=== PATIENT | female | born 1955 | race Caucasian/White ===

== ENCOUNTER → 2023-07-01 13:16 | Outpatient (BNVA) | payer MEDICARE, OTHER, SELFPAY | DX: N39.0 Urinary tract infection, site not specified (principal); R31.9 Hematuria, unspecified | CPT/HCPCS: 81000; 87086 ==

== ENCOUNTER 2023-07-05 09:50 | Outpatient (CLI) | payer MEDICARE, OTHER, SELFPAY ==
--- NOTE | 2023-07-05 10:00 | CTR_ITS ---
PROCEDURE INFORMATION: Exam: CT Abdomen And Pelvis Without Contrast Exam date and time: 07/05/2023 9:59 AM Age: 67 years old Clinical indication: Pain; Other: Left flank; Prior surgery; Surgery date: 6+ months; Surgery type: Hyst, gb; Additional info: Hematuria, left flank pain, renal stone protocol TECHNIQUE: Imaging protocol: Computed tomography of the abdomen and pelvis without contrast. Radiation optimization: All CT scans at this facility use at least one of these dose optimization techniques: automated exposure control; mA and/or kV adjustment per patient size (includes targeted exams where dose is matched to clinical indication); or iterative reconstruction. REPORTING DATA: Count of CT and Cardiac NM exams in prior 12 months: This patient has received 0 known CTs and 0 known cardiac nuclear medicine studies in the 12 months prior to the current study. COMPARISON: No relevant prior studies available. RADIATION DOSE METRICS: Total DLP (mGy-cm): 261.91 FINDINGS: Lungs: 4 mm solid nodule in the superior lingula (axial series 3, image 3). 5 mm solid nodule in the inferior lingula (axial series 3, image 11). 4 mm solid nodule in the medial basal segment the left lower lobe (axial series 3, image 39). Partially calcified 4 mm solid nodule in the lateral basal segment of the right lower lobe (axial series 3, image 12), possibly a partially calcified granuloma. Liver: The liver is normal in size and contour. Gallbladder and bile ducts: The gallbladder is surgically absent. Pancreas: The pancreas appears normal. Spleen: The spleen appears normal. Adrenal glands: The adrenals appear normal. Kidneys and ureters: Significant enlargement of the left kidney with partial obliteration of the renal sinus. Minimal left-sided perinephric fat stranding. Poor visualization of the renal collecting system. No ureteral stones identified. Stomach and bowel: The stomach is unremarkable. The small bowel loops are not abnormally dilated. The large bowel loops are not abnormally dilated. Appendix: The appendix appears normal. Intraperitoneal space: Trace fluid in the left paracolic gutter, possibly tracking from the left perinephric space. Vasculature: The aorta is nonaneurysmal. The IVC appears normal. Lymph nodes: Prominent left-sided periaortic lymphadenopathy at the level of the left kidney. Urinary bladder: The bladder is distended and demonstrates no focal contour abnormality. Reproductive: The uterus is surgically absent. Bones/joints: Grade 1 anterolisthesis of L5 on S1 by approximately 8 mm. New line degenerative disc disease at L5-S1 with vacuum disc phenomenon. Soft tissues: Unremarkable. CT/CT kidney stone [id number] IMPRESSION: 1. Significant enlargement of the left kidney with partial obliteration of the renal sinus. Minimal left-sided perinephric fat stranding. Poor visualization of the renal collecting system. No ureteral stones identified. Findings could be related to significant renal/perinephric hemorrhage and/or related to malignancy. Recommend additional CT abdomen pelvis with contrast including delayed phase imaging. 2. Prominent left-sided periaortic lymphadenopathy at the level of the left kidney. 3. Multiple solid pulmonary nodules noted. COMMENTS: Evaluation of solid organs and vascular structures is limited as no IV contrast was administered.
== END 2023-07-05 09:51 | disposition home or self-care (01) ==
LOC: RAD 09:50
PROVIDERS: PCP Family Medicine; Visit Provider Family Medicine
DX: N28.81 Hypertrophy of kidney (principal); R59.0 Localized enlarged lymph nodes; R91.8 Other nonspecific abnormal finding of lung field; R31.9 Hematuria, unspecified; R10.9 Unspecified abdominal pain
CPT/HCPCS: 74176

== ENCOUNTER 2023-07-12 08:40 | Oncology outpatient (recurring) (ONCR) | payer MEDICARE, OTHER, SELFPAY ==
--- OUTSIDE RECORDS SUMMARY | 2023-07-12 08:44 | XMS_ITS | Continuity of Care Document ---
Author Name Unknown Organization [facility] Address [address] [place] [address]- Encounter [place] [employer] Number [id number] Date(s): 07/05/23 - 07/06/23 [facility] [address] [place] [address]- Encounter Diagnosis Renal cell carcinoma of left kidney(Discharge Diagnosis) - 07/05/23 Metastasis to lung(Discharge Diagnosis) - 07/05/23 Discharge Disposition: .Discharge to Home (Routine) Attending Physician: Gregorio Chinchilla MD Allergies, Adverse Reactions, Alerts Substance Reaction Severity Status morphine vomiting Moderate Active Versed vomiting Moderate Active Latex blisters estrada Moderate Active traMADol throat swelling hives, Severe Active Assessment and Plan Extracted from: Title:ED Physician Note Author:Gregorio Chinchilla MD Date:07/05/23 Impression and Plan Calls-Consults - 07/05/2023 21:37:00 , Stacia SNOW, Tigre Rouse MD, Justin. Plan Condition: Stable. Disposition: Discharged: The patient received an appropriate MSE including H&P exam as well as ancillary studies and procedures determined appropriate in the provider's judgement. The patient is medically and/or psychologically cleared for discharge. . 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, [id number], 54.4, Weight (kg) (Clinical), 07/05/23 16:41:00 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, kg Education: Kidney Cancer Orders: ( Completed ): Xtra Gold Top 07/05/2023 17:54 Magnesium Serum (Magnesium Serum) 07/05/2023 18:21 CBC-d (CBC-d) 07/05/2023 18:07 Lipase (Lipase) 07/05/2023 18:21 CMP (CMP) 07/05/2023 18:21 zCBC Automated Diff 07/05/2023 18:07 Phlebotomy EKG 12-Lead (EKG 12-Lead) 07/05/2023 20:17 Obtain EKG (Obtain EKG) 07/05/2023 19:45 fentaNYL (fentaNYL) 100 mcg 07/05/2023 19:54 ondansetron (Zofran) 4 mg 07/05/2023 19:57 CT Chest Abd Pelvis w Contrast (CT Chest Abd Pelvis w Contrast) 07/05/2023 21:19 iopamidol (ISOVUE 370 IBP INJ 500 ML) 75 mL 07/05/2023 20:29 ED Physician Request Pending Complete (ED Physician Request Pending Complete) 07/05/2023 21:41 ED Physician Request (ED Physician Request) 07/05/2023 21:31 ED Physician Request Pending Complete (ED Physician Request Pending Complete) 07/05/2023 21:34 ED Physician Request (ED Physician Request) 07/05/2023 21:39 Orders: ( Ordered ): Urinalysis w/ microscopy (Urinalysis w/ microscopy) fentaNYL (fentaNYL) 100 mcg Follow Up: Prashant Kim 5 to 7 days Oncology . Counseled: Patient, Regarding diagnosis, Regarding diagnostic results, Regarding treatment plan, Patient indicated understanding of instructions. Medications ALPRAZolam 0.5 mg, By mouth, at bedtime, 30 tab, 0, 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 Start Date: 07/05/23 Status: Ordered atorvastatin 10 mg, By mouth, QPM (every evening), # 30 tab, Refill(s) 0 Start Date: 07/05/23 Status: Ordered cyclobenzaprine 10 mg oral tablet 10 mg = 1 tab, By mouth, TID, Refill(s) 0 Start Date: 07/05/23 Status: Ordered Dorzolamide Hydrochloride Refill(s) 0 Start Date: 07/05/23 Status: Ordered ezetimibe 10 mg oral tablet 10 mg = 1 tab, By mouth, Daily, Refill(s) 0 Start Date: 07/05/23 Status: Ordered finasteride 1 mg oral tablet 1 mg = 1 tab, By mouth, Daily, Refill(s) 0 Start Date: 07/05/23 Status: Ordered latanoprost ophthalmic QPM (every evening), Refill(s) 0 Start Date: 07/05/23 Status: Ordered meloxicam 15 mg oral tablet 15 mg = 1 tab, By mouth, Daily, Refill(s) 0 Start Date: 07/05/23 Status: Ordered Metoprolol Succinate ER 25 mg oral tablet, extended release 25 mg = 1 tab, By mouth, BID, Refill(s) 0 Start Date: 07/05/23 Status: Ordered [place] 5 mg-325 mg oral tablet 1 tab, By mouth, Q4H, PRN for pain, 15 Days, 20 tab, 0, 0, 07/20/23 22:21:00 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, 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, [id number], 54.4, Weight (kg) (Clinical), 07/05/23 16:41:00 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, kg Start Date: 07/05/23 Stop Date: 07/20/23 Status: Ordered omeprazole 40 mg, By mouth, BID, 0, 07/05/23 16:52:00 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, 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 Start Date: 07/05/23 Status: Ordered ramipril 2.5 mg, By mouth, BID, # 60 cap, Refill(s) 0 Start Date: 07/05/23 Status: Ordered timolol By mouth, BID, Refill(s) 0 Start Date: 07/05/23 Status: Ordered traZODone 50 mg oral tablet 50 mg = 1 tab, By mouth, Refill(s) 0 Start Date: 07/05/23 Status: Ordered valACYclovir By mouth, Refill(s) 0 Start Date: 07/05/23 Status: Ordered Problem List Condition Confirmation Course Effective Dates Status Health [facility] Informant Ex-smoker Confirmed Active patient Procedures Procedure Date Related Diagnosis Body Site Status Finger Completed Gallbladder Completed Hysterectomy Completed Results Laboratory List Name Date CBC-d 07/05/23 CMP 07/05/23 Lipase 07/05/23 Magnesium Serum (Mg Serum) 07/05/23 zCBC Automated Diff 07/05/23 Most recent to oldest [Reference Range]: 1 Anion Gap [2-15 mEq/L] 10 mEq/L (07/05/23 5:05 PM) eGFR CKD-EPI [>=61 mL/min/1.73 m2] 74 mL /min/1.73 m2 (07/05/23 5:05 PM) Glucose, Serum/Plasma [70-100 mg/dL] 134 mg/dL *HI* (07/05/23 5:05 PM) WBC [4.8-10.8 Thous/mm3] 8.2 Thous/mm3 (07/05/23 5:05 PM) Hct [37.0-47.0 %] 32.2 % *LOW* (07/05/23 5:05 PM) Hgb [12.0-16.0 g/dL] 10.1 g/dL *LOW* (07/05/23 5:05 PM) RBC [4.20-5.40 Million/mm3] 3.68 Million /mm3 *LOW* (07/05/23 5:05 PM) MCV [80.0-100.0 fl] 87.5 fl (07/05/23:05 PM) MCH [26.0-34.0 pg] 27.4 pg (07/05/23:05 PM) MCHC [31.0-36.5 g/dL] 31.4 g/dL (07/05/23 5:05 PM) RDW [10.4-14.4 %] 13.1 % (07/05/23:05 PM) Platelets [130-440 Thous/mm3] 307 Thous/ mm3 (07/05/23 5:05 PM) MPV [9.4-12.4 fl] 10.1 fl (07/05/23 5:05 PM) AutoNeutrophil [43.0-78.0 %] 73.6 % (07/05/23 5:05 PM) AutoLymphs [20.0-40.0 %] 17.6 % *LOW* (07/05/23 5:05 PM) AutoMono [2.0-10.0 %] 6.8 % (07/05/23 5:05 PM) AutoEo [0.0-7.0 %] 1.0 % (07/05/23 5:05 PM) Sodium [136-145 mEq/L] 142 mEq/L (07/05/23:05 PM) Potassium [3.5-5.1 mEq/L] 4.1 mEq/L (07/05/23 5:05 PM) Chloride [98-107 mEq/L] 108 mEq/L *HI* (07/05/23 5:05 PM) AbsNeut [2.0-8.0 Thous/mm3] 6.1 Thous/mm 3 (07/05/23 5:05 PM) CO2 [21-32 mEq/L] 24 mEq/L (07/05/23 5:05 PM) BUN [7-18 mg/dL] 13 mg/dL (07/05/23 5:05 PM) Creatinine [0.55-1.02 mg/dL] 0.87 mg/dL (07/05/23 5:05 PM) AbsLymph [1.0-4.0 Thous/mm3] 1.4 Thous/m m3 (07/05/23 5:05 PM) AbsMono [0.1-1.0 Thous/mm3] 0.6 Thous/mm 3 (07/05/23 5:05 PM) Bilirubin, Total [0.2-1.0 mg/dL] 0.4 mg/ dL (07/05/23 5:05 PM) AbsEo [0.0-0.5 Thous/mm3] 0.1 Thous/mm3 (07/05/23 5:05 PM) AbsBaso [0.0-0.2 Thous/mm3] 0.0 Thous/mm 3 (07/05/23 5:05 PM) AutoBaso [0.0-2.5 %] 0.5 % (07/05/23 5:05 PM) Calcium [8.3-10.6 mg/dL] 10.1 mg/dL (07/05/23 5:05 PM) Protein Total [6.4-8.5 g/dL] 7.0 g/dL (07/05/23 5:05 PM) Albumin [3.4-5.0 g/dL] 3.6 g/dL (07/05/23 5:05 PM) AST [15-37 U/L] 19 U/L (07/05/23 5:05 PM) Alk Phos [45-117 U/L] 92 U/L (07/05/23 5:05 PM) Magnesium [1.8-2.4 mg/dL] 2.4 mg/dL (07/05/23 5:05 PM) ALT [10-49 U/L] 31 U/L (07/05/23 5:05 PM) Lipase, Serum/Plasma [12-53 U/L] 31 U/L (07/05/23 5:05 PM) Imm. Grans % [0-5 %] <5 % (07/05/23 5:05 PM) Imm. Grans # [0.0-0.5 Thous/mm3] <0.5 Th ous/mm3 (07/05/23 5:05 PM) ANC-AbsNeutCount 6.0 Thous/mm3 *NA* (07/05/23 5:05 PM) Radiology Reports * Exam Date Time Procedure Performing Provider Status 07/05/23 8:[address] Chest Abd Pelvis w Contrast Renée SNOW, Gregorio Lopez; Miriam (Verified) Notes: (CT Chest Abd Pelvis w Contrast) Reason For Exam: Previous CT at outside hospital demonstrates likely left kidney cancer. Radiologist recommended delayed phase imaging with contrast REPORT CT Chest Abd Pelvis w Contrast PROCEDURE INFORMATION: Exam: CT Chest With Contrast; Diagnostic Exam date and time: 07/05/2023 8:28 PM Age: 67 years old Clinical indication: Previous CT at outside hospital demonstrates likely left kidney TECHNIQUE: Imaging protocol: Diagnostic computed tomography of the chest with contrast. Radiation optimization: All CT scans at this facility use at least one of these dose optimization techniques: automated exposure control; mA and/or kV adjustment per patient size (includes targeted exams where dose is matched to clinical indication); or iterative reconstruction. REPORTING DATA: Count of CT and Cardiac NM exams in prior 12 months: This patient has received 0 known CTs and 0 known cardiac nuclear medicine studies in the 12 months prior to the current study. COMPARISON: No relevant prior studies available. FINDINGS: Thyroid: 0.8 cm right thyroid nodule. No ultrasound follow-up is recommended. Lungs: 4 mm right lower lobe nodule (series 2, image 37). 7 mm left lower lobe nodule, image 24. 14 mm left upper lobe nodule, image 22. Mild left base atelectasis. Pleural spaces: No pneumothorax. Trace left pleural effusion. Heart: Unremarkable. No cardiomegaly. No pericardial effusion. Lymph nodes: Unremarkable. No enlarged lymph nodes. Vasculature: Unremarkable. No aortic aneurysm. Bones/joints: Degenerative changes of the spine. No fracture or lytic lesion identified. Soft tissues: Unremarkable. IMPRESSION: 1. Multiple pulmonary nodules, consistent with metastatic disease. COMMENTS: Consistent with the [place] [employer]'s Incidental Findings Committee white paper (J Am Chaz Radiol 2015): In patients aged 35 years and older with an incidental thyroid nodule equal to or greater than 1.[address], MRI or extrathyroidal US, further evaluation with dedicated thyroid US is recommended for patients with normal life expectancy and without comorbidities. For smaller nodules without suspicious features, no further evaluation or follow up is recommended. PROCEDURE INFORMATION: Exam: CT Abdomen And Pelvis With Contrast Exam date and time: 07/05/2023 8:28 PM Age: 67 years old Clinical indication: Previous CT at outside hospital demonstrates likely left kidney TECHNIQUE: Imaging protocol: Computed tomography of the abdomen and pelvis with contrast. Radiation optimization: All CT scans at this facility use at least one of these dose optimization techniques: automated exposure control; mA and/or kV adjustment per patient size (includes targeted exams where dose is matched to clinical indication); or iterative reconstruction. REPORTING DATA: Count of CT and Cardiac NM exams in prior 12 months: This patient has received 0 known CTs and 0 known cardiac nuclear medicine studies in the 12 months prior to the current study. COMPARISON: No relevant prior studies available. FINDINGS: Liver: Normal. No mass. Gallbladder and bile ducts: Cholecystectomy. The bile ducts are normal. Pancreas: Normal. No ductal dilation. Spleen: Normal. No splenomegaly. Adrenal glands: Normal. No mass. Kidneys and ureters: Ill-defined 8.5 cm hypodense mass in the inferior anterior left kidney. Left perinephric stranding. Tumor extension into the left renal vein, to the level of the IVC. No involvement of the IVC identified. 1.9 cm hypodensity in the superior left kidney could represent a cyst or focal caliectasis. Hypodensities in the right kidney are too small to characterize but are most likely cysts. No hydronephrosis. Stomach and bowel: Unremarkable. No obstruction. No mucosal thickening. Appendix: The appendix is visualized and is normal. Intraperitoneal space: Unremarkable. No free air. No significant fluid collection. Vasculature: Mild scattered arterial calcifications. No aneurysm. Lymph nodes: Enlarged 2.4 cm left retroperitoneal lymph node, medial to the left kidney. Urinary bladder: Unremarkable as visualized. Reproductive: The uterus and ovaries are absent. Bones/joints: Degenerative subluxation of L5 on S1. No fracture or lytic lesion identified. Soft tissues: Small fat containing umbilical hernia. IMPRESSION: 1. 8.5 cm mass in the left kidney with extension into the left renal vein. This is consistent with renal cell carcinoma. 2. Enlarged metastatic left retroperitoneal lymph node. COMMENTS: Consistent with the [place] [employer]'s Incidental Findings Committee white paper (J Am Chaz Radiol 2018): Any incidental renal lesion less than 1 cm or classified as too small to characterize, or any incidental cystic renal lesion characterized as simple-appearing, is likely benign. No follow-up imaging is recommended for these lesions per consensus recommendations based on imaging criteria. Electronically signed by: Mao Potts MD, [facility], 07/05/2023 21:18 Mao Potts MD Signed 07/05/23 21:18:45 (Electronic Signature) Technologist EN Vital Signs Most recent to oldest [Reference Range]: 1 2 3 Blood Pressure 124/74 (07/05/23 11:45 PM) 132/88 (07/05/23 11:32 PM) 150/87 (07/05/23 11:00 PM) Weight (kg) (Clinical) 54.4 kg (07/05/23 4:41 PM) 54.4 kg (07/05/23 4:38 PM) Social History Social History Type Response Smoking Status Former smoker; Smoke less tobacco use: Never; Has the patient smoked in the last 365 days, even once? No entered on: 07/05/23 Sex Female Hospital Discharge Instructions Patient Education 07/05/2023 22:22:12 Kidney Cancer Kidney Cancer Kidney cancer is an abnormal growth of cells in one or both kidneys. The kidneys filter waste from your blood and produce urine. Kidney cancer may spread to other parts of your body. This type of cancer may also be called renal cell carcinoma. What are the causes? The cause of this condition is not always known. In some cases, abnormal changes to genes (genetic mutations) can cause cells to form cancer. What increases the risk? You may be more likely to develop kidney cancer if you: ??? Are over age 60. The risk increases with age. ??? Have a family history of kidney cancer. ??? Are of -[place], , or [place] descent. ??? Smoke. ??? Are male. ??? Are obese. ??? Have high blood pressure (hypertension). ??? Have advanced kidney disease, especially if you need long-term dialysis. ??? Have certain conditions that are passed from parent to child (inherited), such as von Hippel-Lindau disease, tuberous sclerosis, or hereditary papillary renal carcinoma. ??? Have been exposed to certain chemicals. What are the signs or symptoms? In the early stages, kidney cancer does not cause symptoms. As the cancer grows, symptoms may include: ??? Blood in the urine. ??? Pain in the upper back or abdomen, just below the rib cage. You may feel pain on one or both sides of the body. ??? Fatigue. ??? Unexplained weight loss. ??? Fever. How is this diagnosed? This condition may be diagnosed based on: ??? Your symptoms and medical history. ??? A physical exam. ??? Blood and urine tests. ??? X-rays. ??? Imaging tests, such as CT scans, MRIs, and PET scans. ??? Having dye injected into your blood through an IV, and then having X-rays taken of: ??? Your kidneys and the rest of the organs involved in making and storing urine (intravenous pyelogram). ??? Your blood vessels (angiogram). ??? Removal and testing of a kidney tissue sample (biopsy). Your cancer will be assessed (staged), based on how severe it is and how much it has spread. How is this treated? Treatment depends on the type and stage of the cancer. Treatment may include one or more of the following: ??? Surgery. This may include surgery to remove: ??? Just the tumor (nephron-sparing surgery). ??? The entire kidney (nephrectomy). ??? The kidney, some of the surrounding healthy tissue, nearby lymph nodes, and the adrenal gland in certain cases (radical nephrectomy). ??? Medicines that kill cancer cells (chemotherapy). ??? High-energy rays that kill cancer cells (radiation therapy). ??? Targeted therapy. This targets specific parts of cancer cells and the area around them to blockthe growth and the spread of the cancer. Targeted therapy can help to limit the damage to healthy cells. ??? Medicines that help your body's disease-fighting system (immune system) fight cancer cells (immunotherapy). ??? Freezing cancer cells using gas or liquid that is delivered through a needle (cryoablation). ??? Destroying cancer cells using high-energy radio waves that are delivered through a needle-like probe (radiofrequency ablation). ??? A procedure to block the artery that supplies blood to the tumor, which kills the cancer cells (embolization). Follow these instructions at home: Eating and drinking ??? Some of your treatments might affect your appetite and your ability to chew and swallow. If youare having problems eating, or if you do not have an appetite, meet with a diet and natural resources specialist (dietitian). ??? If you have side effects that affect eating, it may help to: ??? Eat smaller meals and snacks often. ??? Drink high-nutrition and high-calorie shakes or supplements. ??? Eat bland and soft foods that are easy to eat. ??? Not eat foods that are hot, spicy, or hard to swallow. Lifestyle ??? Do not drink alcohol. ??? Do not use any products that contain nicotine or tobacco, such as cigarettes and e-cigarettes. If you need help quitting, ask your health care provider. General instructions ??? Take eyrc-bpy-nxambyi and prescription medicines only as told by your health care provider. This includes vitamins, supplements, and herbal products. ??? Consider joining a support group to help you cope with the stress of having kidney cancer. ??? Work with your health care provider to manage any side effects of treatment. ??? Keep all follow-up visits as told by your health care provider. This is important. Where to find more information ??? [place] [employer]: https://www.cancer.org ??? National Cancer [place] (NCI): https://www.cancer.gov Contact a health care provider if you: ??? Notice that you bruise or bleed easily. ??? Are losing weight without trying. ??? Have new or increased fatigue or weakness. Get help right away if you have: ??? Blood in your urine. ??? A sudden increase in pain. ??? A fever. ??? Shortness of breath. ??? Chest pain. ??? Yellow skin or whites of your eyes (jaundice). Summary ??? Kidney cancer is an abnormal growth of cells (tumor) in one or both kidneys. Tumors may spread to other parts of your body. ??? In the early stages, kidney cancer does not cause symptoms. As the cancer grows, symptoms may include blood in the urine, pain in the upper back or abdomen, unexplained weight loss, fatigue, and fever. ??? Treatment depends on the type and stage of the cancer. It may include surgery to remove the tumor, procedures and medicines to kill the cancer cells, or medicines to help your body fight cancer cells. This information is not intended to replace advice given to you by your health care provider. Make sure you discuss any questions you have with your health care provider. Document Revised: 02/14/2022 Document Reviewed: 02/14/2022 [employer] Patient Education ?? 2022 Ray[facility] Follow Up Care 07/05/2023 16:29:27 With:Prashant Kim Address: [address] [place] [address], [address] [place] [address] [facility] (1) When:5 to 7 days Comments:Oncology CT Chest and Abdomen and Pelvis W contrast IV * Mao Potts MD: PERFORM, VERIFY, VERIFY Event Display: Report Authored Date: Note * Mao Potts MD: PERFORM, VERIFY, VERIFY Event Display: Powerscribe Read Authored Date: PROCEDURE INFORMATION: Exam: CT Chest With Contrast; Diagnostic Exam date and time: 07/05/2023 8:28 PM Age: 67 years old Clinical indication: Previous CT at outside hospital demonstrates likely left kidney TECHNIQUE: Imaging protocol: Diagnostic computed tomography of the chest with contrast. Radiation optimization: All CT scans at this facility use at least one of these dose optimization techniques: automated exposure control; mA and/or kV adjustment per patient size (includes targeted exams where dose is matched to clinical indication); or iterative reconstruction. REPORTING DATA: Count of CT and Cardiac NM exams in prior 12 months: This patient has received 0 known CTs and 0 known cardiac nuclear medicine studies in the 12 months prior to the current study. COMPARISON: No relevant prior studies available. FINDINGS: Thyroid: 0.8 cm right thyroid nodule. No ultrasound follow-up is recommended. Lungs: 4 mm right lower lobe nodule (series 2, image 37). 7 mm left lower lobe nodule, image 24. 14 mm left upper lobe nodule, image 22. Mild left base atelectasis. Pleural spaces: No pneumothorax. Trace left pleural effusion. Heart: Unremarkable. No cardiomegaly. No pericardial effusion. Lymph nodes: Unremarkable. No enlarged lymph nodes. Vasculature: Unremarkable. No aortic aneurysm. Bones/joints: Degenerative changes of the spine. No fracture or lytic lesion identified. Soft tissues: Unremarkable. IMPRESSION: 1. Multiple pulmonary nodules, consistent with metastatic disease. COMMENTS: Consistent with the [employer]'s Incidental Findings Committee white paper (J Am Chaz Radiol 2015): In patients aged 35 years and older with an incidental thyroid nodule equal to or greater than 1.[address], MRI or extrathyroidal US, further evaluation with dedicated thyroid US is recommended for patients with normal life expectancy and without comorbidities. For smaller nodules without suspicious features, no further evaluation or follow up is recommended. PROCEDURE INFORMATION: Exam: CT Abdomen And Pelvis With Contrast Exam date and time: 07/05/2023 8:28 PM Age: 67 years old Clinical indication: Previous CT at outside hospital demonstrates likely left kidney TECHNIQUE: Imaging protocol: Computed tomography of the abdomen and pelvis with contrast. Radiation optimization: All CT scans at this facility use at least one of these dose optimization techniques: automated exposure control; mA and/or kV adjustment per patient size (includes targeted exams where dose is matched to clinical indication); or iterative reconstruction. REPORTING DATA: Count of CT and Cardiac NM exams in prior 12 months: This patient has received 0 known CTs and 0 known cardiac nuclear medicine studies in the 12 months prior to the current study. COMPARISON: No relevant prior studies available. FINDINGS: Liver: Normal. No mass. Gallbladder and bile ducts: Cholecystectomy. The bile ducts are normal. Pancreas: Normal. No ductal dilation. Spleen: Normal. No splenomegaly. Adrenal glands: Normal. No mass. Kidneys and ureters: Ill-defined 8.5 cm hypodense mass in the inferior anterior left kidney. Left perinephric stranding. Tumor extension into the left renal vein, to the level of the IVC. No involvement of the IVC identified. 1.9 cm hypodensity in the superior left kidney could represent a cyst or focal caliectasis. Hypodensities in the right kidney are too small to characterize but are most likely cysts. No hydronephrosis. Stomach and bowel: Unremarkable. No obstruction. No mucosal thickening. Appendix: The appendix is visualized and is normal. Intraperitoneal space: Unremarkable. No free air. No significant fluid collection. Vasculature: Mild scattered arterial calcifications. No aneurysm. Lymph nodes: Enlarged 2.4 cm left retroperitoneal lymph node, medial to the left kidney. Urinary bladder: Unremarkable as visualized. Reproductive: The uterus and ovaries are absent. Bones/joints: Degenerative subluxation of L5 on S1. No fracture or lytic lesion identified. Soft tissues: Small fat containing umbilical hernia. IMPRESSION: 1. 8.5 cm mass in the left kidney with extension into the left renal vein. This is consistent with renal cell carcinoma. 2. Enlarged metastatic left retroperitoneal lymph node. COMMENTS: Consistent with the [employer]'s Incidental Findings Committee white paper (J Am Chaz Radiol 2018): Any incidental renal lesion less than 1 cm or classified as too small to characterize, or any incidental cystic renal lesion characterized as simple-appearing, is likely benign. No follow-up imaging is recommended for these lesions per consensus recommendations based on imaging criteria. Electronically signed by: Mao Potts MD, [facility], 07/05/2023 21:18 Delroy SNOW, Mao O Signed 07/05/23 21:18:45 (Electronic Signature) Technologist EN Cardiology * Augie SNOW, Vicente D: SIGN, VERIFY Event Display: EKG 12-Lead Authored Date: Patient Care team information Care Team Personnel Name: Jeanna Petty Position: ED-Clinical LP Member Role: Emergency Room Nurse Name: Gregorio Chinchilla MD Position: Physician-Emergency LP Member Role: Attending Physician Address: Address: [facility] [place] [address]- Care Team Related Persons Name: ZAY SCHUSTER
[2023-07-12 10:21] LABS: Basophils # 0.1 10^3/uL (0.0-0.1); Basophils % 0.7 %; Eosinophils # 0.1 10^3/uL (0.0-0.8); Eosinophils % 1.2 %; Hematocrit 32.5 % (36-47); Lymphocytes % 10.6 %; Mean Corpuscular HGB Conc 32.6 g/dL (30-55); Mean Corpuscular Hemoglobin 27.2 pg (27-33); Mean Corpuscular Volume 83.5 fl (85-98); Mean Platelet Volume 9.4 fL (7.4-10.4); Monocytes # 0.8 10^3/uL (0.2-0.9); Neutrophils # 7.46 10^3/uL (1.8-7.7); Neutrophils % 78.8 %; Nucleated Red Blood Cells % 0 %; Platelet Count 318 10^3/cmm (157-399); Red Blood Count 3.89 10^6/uL (3.85-5.65); Red Cell Distribution Width 13.2 % (12.1-15.1); White Blood Count 9.47 10^3/uL (3.29-11.43)
[2023-07-12 10:46] LABS: Alanine Aminotransferase 22 U/L (0-33); Albumin Level 3.6 g/dL (3.5-5.2); Alkaline Phosphatase 95 U/L (35-105); Anion Gap 19.7 (5-19); Aspartate Amino Transferase 19 U/L (0-32); Blood Urea Nitrogen 16 mg/dL (8-23); Calcium 9.2 mg/dL (8.5-10.5); Carbon Dioxide 18 mmol/L (22-29); Chloride 98 mmol/L (98-107); Globulin 3.1 g/dL (1.3-4.6); Glomerular Filtration Rate 62.8 mL/min (90-130); Glucose 109 mg/dL (65-115); Lactate Dehydrogenase 221 U/L (135-214); Osmolality Calculated 276 mOsm/kg (285-295); Potassium 3.7 mmol/L (3.5-5.1); Sodium 132 mmol/L (136-145); Thyroid Stimulating Hormone 0.86 uIU/mL (0.27-4.20); Total Bilirubin 0.5 mg/dL (0.15-1.2); Total Protein 6.7 g/dL (6.6-8.7)
== END 2023-08-08 23:59 | disposition home or self-care (01) ==
LOC: ONCMED 08:41
PROVIDERS: Internal Medicine Medical Oncology; PCP Family Medicine; Visit Provider Family Medicine
DX: C64.9 Malignant neoplasm of unspecified kidney, except renal pelvis (principal); C78.00 Secondary malignant neoplasm of unspecified lung; R31.9 Hematuria, unspecified; R53.83 Other fatigue; E11.9 Type 2 diabetes mellitus without complications; Z79.899 Other long term (current) drug therapy
CPT/HCPCS: 36415; 80053; 83615; 84443; 85025; 99205

== ENCOUNTER → 2023-07-17 13:38 | Outpatient (BNVA) | payer MEDICARE, OTHER, SELFPAY | PROVIDERS: PCP Family Medicine; Referring Provider Internal Medicine Medical Oncology; Visit Provider Internal Medicine Pulmonary Disease | DX: M54.9 Dorsalgia, unspecified (principal); R91.8 Other nonspecific abnormal finding of lung field; R20.0 Anesthesia of skin; R20.9 Unspecified disturbances of skin sensation; Z87.891 Personal history of nicotine dependence | CPT/HCPCS: 72040; 99204 ==

== ENCOUNTER 2023-07-23 16:43 | Outpatient (CLI) | payer MEDICARE, OTHER, SELFPAY ==
--- NOTE | 2023-07-23 16:45 | CT_ITS ---
WS: [id number] CT chest ION (PULM ONLY) [id number] HISTORY: ION 07/23/23 TECHNIQUE: Axial imaging performed through the thorax. . All CT scans at [facility] use at le ast one of these dose optimization techniques: automated exposure control; mA and/or kV adjustment pe r patient size (includes targeted exams where dose is matched to clinical indication); or iterative r econstruction. CONTRAST: None DLP: 156.99 mGy COMPARISON: 07/05/2023 Numerous bilateral pulmonary nodules are identified. Since the study of 07/05/2023 these nodules have increased in size. Largest nodule LEFT upper lobe slightly irregular in shape measuring 2.1 x 1.4 cm . There are small micronodules and additional nodules measuring less than 2 cm noted bilaterally. The re is a new small LEFT pleural effusion. Also noted is mediastinal and hilar lymphadenopathy which wa s better seen on the prior imaging study. Through the upper abdomen there is an abnormal LEFT kidney with adjacent soft tissue. This cannot be further evaluated on this chest CT performed for bronchoscopy. Prior cholecystectomy. IMPRESSION: 1. Multiple bilateral pulmonary nodules and lymphadenopathy. Pulmonary nodules have increased in siz e since 07/05/2023. 2. Largest nodule LEFT upper lobe measures 2.1 x 1.4 cm. 3. Enlarged heterogeneous LEFT kidney. Only the superior pole is identified. These changes were also described on the prior CT from 07/05/2023.
== END 2023-07-23 16:44 | disposition home or self-care (01) ==
LOC: RAD 16:43
PROVIDERS: PCP Family Medicine; Visit Provider Internal Medicine Pulmonary Disease
DX: R91.8 Other nonspecific abnormal finding of lung field (principal); N28.81 Hypertrophy of kidney
CPT/HCPCS: 71250

== ENCOUNTER 2023-07-24 06:16 | Day surgery (SDC) | payer MEDICARE, OTHER, SELFPAY ==
[2023-07-24] VITALS (12 sets, daily range): BP systolic 107–160; BP diastolic 77–107; PULSE 99–115; RESP 12–20; TEMP 36.3–37.6; O2SAT 95–98; BMI 22.2
[2023-07-24] MEDS: sodium chloride 0.9% 1,000 ML 30 ML IV (06:40)
--- NOTE | 2023-07-24 07:00 | ANES.PREANE2 ---
Pre-Anesthetic Assessment Height/Weight: Height 1.52 m Weight 51.71 kg Temp Pulse Resp BP Pulse Ox O2 Del Method 98.4 F 111 H 18 160/107 97 Room Air 07/24/23 06:39 07/24/23 06:39 07/24/23 06:39 07/24/23 06:39 07/24/23 06:39 07/24/23 06:39 Operation Date: 07/24/23 07:00 Proposed Procedures p ION, EBUS, 53054, 085152, 57302, 72715, 82844, 90273, 37223, 03853, 53313, 06030, 19256, 42731, 58756, 66563,R91.8(Not Applicable) - Adrien Del Toro MD s Ebus(Not Applicable) - Adrien Del Toro MD Familial anesthetic complications: PONV Was Beta Jl taken within 24 hours: Yes Was Clonidine taken within 24 hours: N/A Last intake: Intake Last Liquid Date 07/23/23 Last Liquid Time 23:00 Last Solid Date 07/23/23 Last Solid Time 17:00 Social No alcohol and No tobacco Exam alert, oriented x 3, clear to auscultation bilaterally and regular rate & rhythm Airway Mallampati: Class II Dentition: other (Brdiges) Pulmonary lung nodules CV/HEM Hypertension renal mass GI Gastroesophageal Reflux Disease Metabolic Thyroid Disease Anesthetic Plan ASA status: 3 Anesthesia: General Risk of > 500 ml blood loss (7ml/kg in children): No Medications/Allergies Home Medications Medication Instructions Recorded Confirmed Last Taken Type atorvastatin 10 mg tablet (Lipitor) 10 mg PO DAILY 07/01/23 07/24/23 07/23/23 History baclofen 10 mg tablet 10 mg PO TID PRN Muscle Spasm 07/01/23 07/24/23 07/24/23 History ezetimibe 10 mg tablet (Zetia) 10 mg PO DAILY 07/01/23 07/24/23 07/23/23 History latanoprost 0.005 % eye drops 1 drp ophthalmic (eye) DAILY 07/01/23 07/24/23 07/23/23 History levothyroxine 50 mcg capsule 50 mcg PO DAILY 07/01/23 07/24/23 07/24/23 History meloxicam 15 mg tablet 15 mg PO DAILY 07/01/23 07/24/2307/23/24 History metoprolol succinate 200 mg 100 mg PO DAILY 07/01/23 07/24/23 07/24/23 History capsule sprinkle, ext. release 24 hr metoprolol succinate 25 mg capsule 125 mg PO DAILY 07/01/23 07/24/23 07/24/23 History sprinkle, ext. release 24 hr omeprazole 40 mg capsule,delayed 40 mg PO DAILY 07/01/23 07/24/23 07/23/23 History release ramipril 2.5 mg capsule 2.5 mg PO DAILY 07/01/23 07/24/23 07/23/23 History valacyclovir 1 gram tablet 1,000 mg PO BID PRN fever blister 07/01/23 07/24/23 07/23/23 History ondansetron 4 mg disintegrating 4 mg PO Q8H PRN nausea and 07/04/23 07/24/23 07/23/23 Rx tablet vomiting #20 tabs oxycodone 10 mg tablet 10 - 20 mg (1 - 2 x 10 mg) PO Q4H 07/12/23 07/24/23 07/23/23 Rx PRN pain 7 days #60 tabs alprazolam 0.5 mg tablet 0.5 mg PO DAILY PRN Anxiety 07/17/23 07/24/23 07/23/23 History promethazine 25 mg tablet 25 mg PO Q6H PRN nausea and 07/18/23 07/24/23 07/23/23 Rx vomiting #60 tabs dorzolamide 2 %-timolol 0.5 % (PF) 1 drp ophthalmic (eye) BID 07/20/23 07/24/23 07/23/23 History eye drops metoclopramide HCl 5 mg tablet 5 mg PO Q4H #180 tabs 07/20/23 07/24/23 07/23/23 Rx (Reglan) Allergies Allergy/AdvReac Type Severity Reaction Status Date / Time midazolam [From Versed] Allergy Unknown ADR-Vomitin Verified 07/24/23 06:30 g latex Allergy ALGY-Rash Verified 07/24/23 06:30 Opioids - Morphine Analogues Allergy ADR-Vomitin Verified 07/24/23 06:30 g tramadol Allergy ALGY-Anaphy Verified 07/24/23 06:30 laxis Current Medications Generic Name Dose Route Start Last Admin Trade Name Freq PRN Reason Stop Dose Admin Sodium Chloride 1,000 mls @ 30 mls/hr 07/24/23 06:30 07/24/23 06:40 Sodium Chloride 0.9% IV 07/25/23 06:29 30 mls/hr .Q24H ROSETTE Administration PFSH Anesthesia Medical History Hypothyroidism Glaucoma Degenerative joint disease of spine GERD (gastroesophageal reflux disease) Borderline diabetes Hyperlipidemia Hypertension Surgical History History of cystoscopy Status post trigger finger release History of hysterectomy with bilateral oophorectomy History of cholecystectomy Family History Father Heart disease Lung cancer Hypertension Diabetes Mother COPD (chronic obstructive pulmonary disease) Glaucoma Social History Smoking and tobacco/nicotine status: former use of tobacco/nicotine Quit status (tobacco/nicotine): has quit using Year quit tobacco: 1992 Former quit date comment: She smoked 2 packs of cigarettes daily for 17 years Alcohol intake: former Former alcohol use details: She had social alcohol use. Substance/Drug Use: former Adopted: No Caregiver/support person: No Lives independently: Yes Household members: spouse Housing: House Female Reproductive History Spontaneous abortions: No Data Anesthesia Cardiac Studies: No Data to Display
--- NOTE | 2023-07-24 07:09 | W.PM.OPSUD ---
Surgery/Procedure H&P Update DATE OF PROCEDURE: July 24, 2023 DATE H&P PERFORMED: 07/17/23 H&P UPDATE INFORMATION: I have reviewed H&P completed within last 30 days, I have examined patient prior to procedure and No changes to prior documentation CHANGES TO PREVIOUS DOCUMENTATION: none PREOP DIAGNOSIS: suspected malignancy PRIMARY INDICATION FOR PROCEDURE: suspected malignancy PLANNED PROCEDURE: Operation Date: 07/24/23 07:00 Proposed Procedures p ION, EBUS, 54226, 517955, 40053, 67862, 38721, 77351, 44327, 02711, 28068, 14771, 71383, 22420, 82083, 34265,R91.8(Not Applicable) - Adrien Del Toro MD s Ebus(Not Applicable) - Adrien Del Toro MD
--- NOTE | 2023-07-24 07:20 | SC_ITS ---
WS: [id number] C-ARM RADIOGRAPHS CHEST; 8 IMAGES HISTORY: ion/ebus COMPARISON: None available. Intraoperative imaging during biopsy of LEFT pulmonary nodules. IMPRESSION: Intraoperative imaging during lung nodule biopsy.
[2023-07-24] MEDS: lidocaine 1% INJ 10 mL (per mL) 3 ML XX (07:29)
--- NOTE | 2023-07-24 09:09 | XR_ITS ---
WS: [id number] Exam: XR chest 1V portable [id number] Date/Time of Exam: 07/24/2023 9:16 AM Reason For Exam: POST ION Comparison with chest CT scan performed 07/23/2023. Ill-defined nodular densities are identified in the mid and lower LEFT lung. The lungs are fully infl ated. No consolidated infiltrates are seen. No pleural effusions. No pneumothorax. There is fullness in the AP window apparently representing known mediastinal and LEFT hilar adenopathy. Normal heart s ize. Bony structures are intact. Degenerative changes of both shoulders. IMPRESSION: 1. Ill-defined nodular appearing infiltrates in the mid and lower LEFT lung apparently representing k nown pulmonary nodules. 2. Fullness in the AP window and LEFT hilar region apparently representing known lymphadenopathy.
--- NOTE | 2023-07-24 09:11 | P.OP_ITS ---
Operative Report Date of procedure: July 24, 2023 Pre-op diagnosis: Suspected malignancy Post-op diagnosis: same Procedure done: -Bx Bronchoscope w/Brushings or protected brushings -Dx Bronchoscope w/BAL -Bronch with computer image guided Navigational Bronchoscopy -Bronchoscopy w/Transbronchial lung biopsy(s), single lobe -Bronchoscopy w/Transbronchial needle aspiration biopsy(s), tracheal, main stem, and/or lobar bronchus -Bronchoscopy w/ therapeutic aspiration of the tracheobronchial tree (clearance of airway secretions, removal of mucus plugs) -EBUS Sampling 3 nodes -EBUS Diag or Interven Peripheral lesion (radial EBUS) Surgeon: Adrien Del Toro MD Brief History: Ms. Ana Avila is a 67-year-old female referred by Dr. Canchola for lung nodules on CT scan. She has history of smoking 2 pack/day for 17 years quit in 1992. She had recently moved to this area from [place]. Initially patient presented to Dr. Mcmahon her primary care physician in [facility] on 07/01/2023 for recurrence of gross hematuria, fifth episode in the last 15 months. She was previously evaluated in [place] and had several MRI and cystoscopy with no specific diagnosis established. She had a renal stone protocol CT 07/05/2023 which showed significant enlargement of left kidney with partial ablation of renal sinus as well as a prominent left-sided periaortic lymphadenopathy at the level of left kidney. Also noted multiple small pulmonary nodules including 4 mm nodule superior lingula, 5 mm nodule inferior lingula, 4 mm nodule medial basal segment of left lower lobe and partially calcified 4 mm in the lateral basal segment of right lower lobe. With those findings, she had further evaluation with contrast-enhanced CT scans of the chest, abdomen, and pelvis at [facility] on 07/05[facility]2023. That study showed an ill-defined hypodense mass in the inferior anterior left kidney measuring 8.5 cm. There was associated left perinephric stranding and tumor extension into the left renal vein to the level of the IVC. A 1.9 cm hypodensity in the superior left kidney was felt to be consistent with cyst or focal caliectasis. Hypodensities in the right kidney were too small to characterize, but felt to be most likely cysts. An enlarged left retroperitoneal lymph node measuring 2.4 cm was noted medial to the left kidney. Again noted were multiple pulmonary nodules, the largest in the left upper lobe measuring 14 mm, consistent with metastatic disease. Also noted was a 0.8 cm right thyroid nodule. She was referred to oncology for further management. Although CT scans are suggestive of metastatic renal cancer-she does not have a tissue diagnosis so far and hence oncology referred to pulmonary service for biopsying lung lesions. Today she is scheduled for robotic navigational bronchoscopy guided biopsy of left upper lobe lesions as well as EBUS guided biopsies of mediastinal/hilar lymph nodes Procedure: ION ROBOTIC BRONCHOSCOPY NOTE Pre-procedure Verification: Prior to the procedure, the patient's identity was verified by full name, date of and medical record number. The patient's identity was verified on all pertinent medical records. Also prior to the procedure, a History and Physical was performed, and patient medications, allergies and sensitivities were reviewed. The patient's tolerance of previous anesthesia was reviewed. The risks and benefits of the procedure and the sedation options and risks were discussed with the patient. All questions were answered and informed consent was obtained. Planning: Using the [employer] planning software, this patient?s preoperative CT was loaded onto the system and then target and pathway mapping was performed. This was all done prior to the start of the procedure and appropriate plan verified prior to induction. Anesthesia: General anesthesia was used. Please see anesthesiology documentation for full details. A modified LNVP/Ernesto Protocol was used for robotic bronchoscopy with rapid Intubation, recruitment maneuvers, Tidal Volume around 8-10mL/Kg [place] Body Weight, and PEEP 10-15 as feasible. Time-Out: Prior to the start of the procedure, the patient's identification, proposed procedure, accurate signed consent, correctly labeled images and records, and need for prophylactic antibiotics were verified by the physician, the nurse, the anesthesiologist and the rail car maintenance mechanic in the procedure room. Procedural Details: After obtaining informed consent, The procedure was accomplished without difficulty. The patient tolerated the procedure well. Patient preparation: Patient was placed under general anesthesia. An 8.5 ETT was placed for bronchoscopy. The larynx and vocal cords were not visualized. The trachea was anatomically normal. The right sided airway was anatomically normal without endobronchial lesions. Noted scant noted thick [place]ona appearing secretions. The left sided airway was anatomically normal without endobronchial lesions. Scant moderate thick bar[place]ona appearing secretions. Therapeutic aspiration of the airways, initial encounter, was performed at the right bronchus intermedius, left upper lobe, left lower lobe airways The therapeutic bronchoscope was then removed. We communicated with the anesthesia team to ensure proper ventilator settings for optimal peripheral bronchoscopy. First lesion-left upper lobe The Ion Shape Sensing Robotic Assisted Bronchoscope was brought into the field and the process of registration was carried out. The guide catheter was used for peripheral navigational bronchoscopy using the planned pathway into the left upper lobe lesion and was able to be wedged peripherally at a distance of 2 mm away from the target. We locked the catheter position in, and removed the vision probe. We introduced the radial EBUS probe and obtained an eccentric [id number] image location relative to the lesion in the same lobe. We confirmed our location with a fluoroscopic C-arm. We then removed the R-EBUS and introduced the biopsy tools starting with a 21G ION bronchoscopic peripheral needle for Transbronchial Needle Aspirations (TBNA) . The first pass was not sent for Rapid On Site Evaluation (LALO). We continued more biopsies in a cloud format. Transbronchial biopsies of the left upper lobe lesion were using forceps. Transbronchial biopsy technique was selected because the sampling site was not visible endoscopically. The sampling device penetrated the full thickness of the bronchial wall to obtain the biopsy of lung tissue. 4 biopsy passes were performed, and the same number of biopsy samples were obtained. Endobronchial protective brushings were collected at the same left upper lobe lesion using a cytology brush. Hemostasis was ensured by keeping the ION catheter in place for tamponade. Finally, we used a 10cc syringe filled with normal saline connected to the proximal portion of the ION catheter and slowly injected and aspirated the contents for a bronchial alveolar lavage of the same target lobe. The return was cloudy and blood tinged 6 cc. SECOND lesion in left upper lobe: Next, the vision probe was reintroduced into the guide catheter. This was used to navigate using the planned pathway into the second lesion in left upper lobe lesion was able to be wedged peripherally at a distance of 4 mm away from the target. We locked the catheter position in, and removed the vision probe. We introduced the radial EBUS probe and obtained a weak signal [id number]-[id number] image location relative to the lesion. We confirmed our location with fluoroscopy C-arm. We then removed the R-EBUS and introduced the biopsy tools starting with a 21G ION bronchoscopic peripheral needle for Transbronchial Needle Aspirations (TBNA) . The first pass was not sent for LALO. We continued more biopsies in a cloud format. Transbronchial biopsy technique was selected because the sampling site was not visible endoscopically. The sampling device penetrated the full thickness of the bronchial wall to obtain the biopsy of lung tissue. Transbronchial biopsies of a second left upper lobe lesion were using forceps. Transbronchial biopsy technique was selected because the sampling site was not visible endoscopically. The sampling device penetrated the full thickness of the bronchial wall to obtain the biopsy of lung tissue. 3 biopsy passes were performed, and the same number of biopsy samples were obtained. Hemostasis was ensured by keeping the ION catheter in place for tamponade. At this point and after confirming the absence of bleeding, we removed the channel. There is minimal blood residue was cleared from the airway and the peripheral navigation portion of the procedure was concluded. Empiric cold saline instilled through the catheter and tamponade held for 1-5 minutes. Next, we turned our attention to linear EBUS staging. An EBUS exam was performed: - Stations 7, 4L, 11 L were enlarged > 5mm and sampled in that order. - Stations [ 10L, 4R, 10R, and 11R] were also scanned but <5mm and thus did not meet criteria for sampling. - Level 7 station was identified with the EBUS scope at the medial LMSB/RMSB and 4 passes were made using a 21 G Olympus TBNA needle. -Level 4L station was identified with the EBUS scope at the lateral LMSB and 4 passes were made using a 21G Olympus TBNA needle. - 11L station was identified with the EBUS scope at the LLL/L hilum and 4 passes were made using a 21 G Olympus TBNA needle. Rapid onsite path evaluation (LALO) was not utilized for this case. Following completion of all diagnostic and therapeutic procedures, hemostasis was verified. The scope was removed and procedure concluded. Samples: A. Left upper lobe-first lesion 1. Total of 5 passes were made using needle aspiration; we do not have onsite pathology and so all the material was placed in formalin for histopathology 2. Targeting the same area 4 passes were made using forceps ; we do not have onsite pathology and so all the material was placed in formalin for histopathology 3. Targeting the same area 1 pass were made using Cytobrush ; we do not have onsite pathology and so all the material was placed in formalin for histopathology 4. Bronchoscope was wedged at the entrance of the posterior segment of left upper lobe, 10 mL of saline was instilled and returned 6 mL of bronchoalveolar lavage. The fluid was mixed with blood and specks of tissue. Samples for cell count, cytology, cultures B. Left upper lobe-second lesion 1. Total of 3 passes were made using needle aspiration ; we do not have onsite pathology and so all the material was placed in formalin for histopathology 2. Targeting the same area 3 passes were made using forceps ; we do not have onsite pathology and so all the material was placed in formalin for histopathology B. EBUS guided Fine-needle aspiration biopsies were taken from station 7, station 4L, station 11 L 1. Total of 4 passes were made using needle aspiration([id number]) from station 7: all the material was placed in formalin and sent for histopathology 2. Total of 4 passes were made using needle aspiration([id number]) from station 4L; all the material was placed in formalin and sent for histopathology 3. Total of 4 passes were made using needle aspiration([id number]) from station 11 L; all the material was placed in formalin and sent for histopathology Complications: None.The patient was extubated and brought to the PACU in stable condition. Postprocedure chest x-ray: There is no evidence of pneumothorax Disposition: Patient can be discharged home in stable condition. Pt, and her are aware that I am going to call them to update final biopsy results once available. Related Problem List Diagnoses (1) Multiple lung nodules: (2) Metastasis to lung: (3) Renal cell carcinoma of left kidney:
--- NOTE | 2023-07-24 10:04 | PC.NURSE ---
Patient with pain in left shoulder and weakness in left hand in recovery. Anesthesia notified and at bedside assessing patient. Pt stated she felt this way when she woke up this morning as well, prior to procedure.
--- NOTE | 2023-07-24 10:31 | PC.NURSE ---
Dr Del Toro spoke with patient's PCP, pt to follow-up with PCP for MRI of neck. Dr Del Toro sent pain med to [facility], okayed to give first dose now with zofran.
[2023-07-24 10:33] LABS: Cyto Order Verification Order Verified
[2023-07-24] MEDS: ondansetron 2 mg/ML SDV 2 mL 4 MG IVP (10:35)
[2023-07-24] MEDS: oxyCODONE 10 mg ER (12 HR) Tablet PO (10:38)
--- NOTE | 2023-07-24 10:55 | ANE.PACU2 ---
Inpatient post-anesthesia follow up: Airway intact: Yes Vital signs: Temperature 97.4 F Pulse Rate 105 Respiratory Rate 20 Blood Pressure 150/99 Pulse Oximetry 97 Oxygen Delivery Me thod Room Air Oxygen Flow Rate 3 Fraction of Inspir ed Oxygen Hydration adequate: Yes Nausea and vomiting: No Pain level: 1 Mental status: Baseline Additional Comments: L hand motor deficit (preexisting)
--- NOTE | 2023-07-24 12:20 | PM.PACU ---
PACU note Narrative: Discussed left hand weakness with patient in recovery. Pt states she woke up at home this morning with left arm and hand weakness and she believes it is from a pinched nerve in her shoulder. She denies any numbness or tingling in her hand but states she cannot make a fist or completely open her hand. Dr Del Toro and Dr Mcdowell are aware. Pt instructed to follow up with primary care physician.
--- NOTE | 2023-07-24 14:05 | PM.MISC ---
Miscellaneous Note Purpose of Documentation: L hand deficit (Pre-existing) Note: Called to phase II recovery for patient complaining of pre-existing L hand deficit, which she failed to mention previously. Patient states last night her neck was stiff and she feels her ability to lift her L arm over her head is weak. This morning upon awakening from bed she also developed weakness of the hand with inability to fully extend all five of her fingers. 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 Patient denied any other deficits systemically or locally in the affected hand (sensation intact, no parasthesias). Discussed with Datar who has set up MRI of neck with her PCP.
[2023-07-28 16:35] LABS: Aspergillus AG,EIA, Index 0.81
== END 2023-07-24 10:58 | disposition home or self-care (01) ==
PROVIDERS: PCP Family Medicine; Visit Provider Internal Medicine Pulmonary Disease
PROC: 0BJ08ZZ Inspection of Tracheobronchial Tree, Via Natural or Artificial Opening Endoscopic (ICD-10-PCS; CPT 31622; principal; 2023-07-24 07:00)
PROC: BB4BZZZ Ultrasonography of Pleura (ICD-10-PCS; 2023-07-24 07:00)
DX: R91.8 Other nonspecific abnormal finding of lung field (principal); F17.210 Nicotine dependence, cigarettes, uncomplicated; I10 Essential (primary) hypertension; K21.9 Gastro-esophageal reflux disease without esophagitis; E03.9 Hypothyroidism, unspecified; E78.5 Hyperlipidemia, unspecified
CPT/HCPCS: 31623; 31627; 31628; 31629; 31645; 31653; 31654; 71045; 76000; 87015; 87070; 87102; 87116; 87205; 87206; 87305; 87801; 88112; 88305; 88342; J0330; J1100; J2405; J2704; J3010; J3490; J7030

== ENCOUNTER 2023-08-01 12:02 | Emergency (ER) | payer MEDICARE, OTHER, SELFPAY ==
[2023-08-01] VITALS (58 sets, daily range): BP systolic 104–137; BP diastolic 62–89; PULSE 105–142; RESP 8–25; TEMP 36.8; O2SAT 86–100; BMI 21.4
--- NOTE | 2023-08-01 12:11 | ED_ITS ---
HPI - SOB/Dyspnea 2 General: Chief Complaint: Shortness of Breath/Dyspnea Stated Complaint: SOB, stage 4 lung cancer Time Seen by Provider: 08/01/23 12:05 Source: patient Mode of arrival: EMS History of Present Illness: HPI Narrative: 67-year-old cachectic appearing female w ith a known history of lung cancer has been increasingly short of breath worsening over the last month. She has had previous attempts to confirm diagnosis she has radiographic findings but she has not had a tissue diagnosis evidently. She was seen at [place] the difficult time getting a biopsy she is had biopsies here but the tissue did not yield a definitive diagnosis or planning to do a repeat biopsy by bronchoscopy. In the last 1 and half to 2 weeks she has had significantly worsening pain and a lot of abdominal discomfort and bloating she is not able to eat or drink. She is not currently receiving any treatment for cancer MD elicited complaint: shortness of breath, cough and pain with inspiration Pertinent past history: other (Lung cancer) Onset (ago): week(s) Timing: constant Severity: severe Exacerbating factors: exertion, movement and coughing Relieving factors: nothing Associated symptoms: Reports abdominal pain, chest congestion, chest pain, cough, extremity pain, myalgias, nausea, orthopnea and vomiting; Deny diaphoresis, dizziness, fever(s), hemoptysis, lightheadedness, palpitations, paresthesias, polydipsia, polyuria, rash, sense of impending doom or syncope Related Data: Home oxygen amount: none Review of Systems 2 Const: Denies: fever(s) or diaphoresis Card: Reports: chest pain and orthopnea; Denies: palpitations, lightheadedness or syncope Resp: Reports: dyspnea, wheezing and chest congestion; Denies: hemoptysis GI: Reports: abdominal pain, nausea, vomiting and early satiety : Denies: dysuria, urinary frequency or urinary urgency Musc: Reports: neck pain and extremity pain Skin/Breast: Denies: rash Neuro: Denies: dizziness Endo: Denies: polyuria or polydipsia PFSH ED 2 PFSH: Medical History (Updated 08/02/23 @ 07:37 by Jf Marin DO) Renal cell carcinoma of left kidney Hypothyroidism Glaucoma Degenerative joint disease of spine GERD (gastroesophageal reflux disease) Borderline diabetes Hyperlipidemia Hypertension Surgical History History of cystoscopy Status post trigger finger release History of hysterectomy with bilateral oophorectomy History of cholecystectomy Family History Father Heart disease Lung cancer Hypertension Diabetes Mother COPD (chronic obstructive pulmonary disease) Glaucoma Social History Smoking and tobacco/nicotine status: former use of tobacco/nicotine Quit status (tobacco/nicotine): has quit using Year quit tobacco: 1992 Former quit date comment: She smoked 2 packs of cigarettes daily for 17 years Alcohol intake: former Former alcohol use details: She had social alcohol use. Substance/Drug Use: former Adopted: No Caregiver/support person: No Lives independently: Yes Household members: spouse Housing: House Female Reproductive History: Spontaneous abortions: No Physical Exam 2 Const: GENERAL APPEARANCE: cooperative NUTRITIONAL APPEARANCE: cachectic ORIENTATION/CONSCIOUSNESS: Yes awake, Yes oriented to person, Yes oriented to place and Yes oriented to time HENMT: COMMON NORMALS: normocephalic, atraumatic and hearing grossly normal bilaterally HEAD & SCALP: normocephalic and atraumatic Resp: COMMON NORMALS: normal respiratory effort, No retractions and No use of accessory muscles AUSCULTATION: crackles and wheezes Cardio: COMMON NORMALS: regular rhythm and No murmurs present (Cardio) R ATE: tachycardic RHYTHM: regular rhythm GI: AUSCULTATION: Yes normoactive bowel sounds PALPATION: Yes Tenderness to palpation present (GI), No Guarding due to palpation present (GI) and Yes Hepatomegaly present Extremity: COMMON NORMALS: normal to inspection, capillary refill normal, no clubbing, cyanosis or edema, no calf tenderness and no pedal edema Neuro: SENSORIUM/ORIENTATION: Yes oriented to person, Yes oriented to place and Yes oriented to time Skin: COMMON NORMALS: no rashes or lesions noted GENERAL SKIN EXAM: no rashes or lesions noted Course 2 Vital Signs: Vital signs: Vital Signs Temperature 98.3 F 08/01/23 12:03 Pulse Rate 134 H 08/01/23 16:35 Respiratory Rate 9 L 08/01/23 16:35 Blood Pressure 104/76 08/01/23 17:05 Pulse Oximetry 90 08/01/23 16:35 Oxygen Delivery Me thod Room Air 08/01/23 15:10 MDM - SOB/Dyspnea Medical Decision Making Extensive metastasis is worsened since her last CT she now has a large thrombus extending from her left kidney to the inferior vena cava and in the right atrium. There is no evidence of PE however. She also has extensive liver metastasis. She has metastasis to the spine at the thoracic and cervical levels were noted on this CTA of the chest. Her disease is widespread and advancing significantly I discussed with Dr. Canchola and with Dr. Hoskins who have seen her previously at this point they feel that hospice is appropriate we did discuss anticoagulation and ultimately decided against that and did offer her hospital admission or referral for second opinion the clot would be very difficult to manage. Anticoagulation is an option but could lead to other issues especially given her widespread metastatic disease. Ultimately she decided to opt for hospice. Hospice medications prescribed hospice was in the emergency room and will see her in her own home and make arrangements to get her enrolled and get her appropriate care. I also discussed with Dr. Mcmahon. Medical Records I reviewed the patient's medical records. Lab Data I reviewed the patient's lab results. 08/01/23 12:40 08/01/23 12:40 Labs/Radiology: Laboratory Results WBC 17.32 10^3/uL (3.29-11.43) H 08/01/23 12:40 RBC 3.88 10^6/uL (3.85-5.65) 08/01/23 12:40 Hgb 9.90 g/dL (11.27-16.99) L 08/01/23 12:40 Hct 32.4 % (36-47) L 08/01/23 12:40 MCV 83.5 fl (85-98) L 08/01/23 12:40 MCH 25.5 pg (27-33) L 08/01/23 12:40 MCHC 30.6 g/dL (30-55) 08/01/23 12:40 RDW 15.4 % (12.1-15.1) H 08/01/23 12:40 Plt Count 195 10^3/cmm (157-399) 08/01/23 12:40 MPV 11.1 fL (7.4-10.4) H 08/01/23 12:40 Lymph % (Auto) Not Reportable 08/01/23 12:40 [place] % (Auto) Not Reportable 08/01/23 12:40 Lymph # (Auto) Not Reportable 08/01/23 12:40 [place] # (Auto) Not Reportable 08/01/23 12:40 Total Counted 100 (0-100) 08/01/23 12:40 Atypical Lymphs % 2.0 % (0-5) 08/01/23 12:40 Absolute Neutrophils 14.9 10^3/cmm (1.4-6.5) H 08/01/23 12:40 Segmented Neutrophils 86 % 08/01/23 12:40 Abs Segm Neuts (Man) 14.9 10/cmm (1.6-7.1) H 08/01/23 12:40 Band Neutrophils 0.0 % 08/01/23 12:40 Abs Band Neuts (Man) 0.0 10^3/cmm (0.0-1.2) 08/01/23 12:40 Absolute Lymphocytes 1.7 10^3/cmm (1.2-3.4) 08/01/23 12:40 Lymphocytes (Manual) 8 % 08/01/23 12:40 Monocytes (Manual) 0.0 % 08/01/23 12:40 Absolute Monocytes 0.0 10^3/cmm (0.1-0.6) L 08/01/23 12:40 Eosinophils (Manual) 0 % 08/01/23 12:40 Absolute Eosinophils 0.0 10^3/cmm (0.0-0.7) 08/01/23 12:40 Basophils (Manual) 0.0 % 08/01/23 12:40 Absolute Basophils 0.0 10^3/cmm (0.0-0.2) 08/01/23 12:40 Metamyelocytes 4.0 % 08/01/23 12:40 Platelet Estimate Normal (Normal) 08/01/23 12:40 Giant Platelets Trace 08/01/23 12:40 Anisocytosis Trace 08/01/23 12:40 Sodium 128 mmol/L (136-145) L 08/01/23 12:40 Potassium 6.2 mmol/L (3.5-5.1) H 08/01/23 12:40 Chloride 87 mmol/L (98-107) L 08/01/23 12:40 Carbon Dioxide 21 mmol/L (22-29) L 08/01/23 12:40 Anion Gap 26.2 (5-19) H 08/01/23 12:40 BUN 56 mg/dL (8-23) H 08/01/23 12:40 Creatinine 1.4 mg/dL (0.5-0.9) H 08/01/23 12:40 GFR Calculation 37.7 mL/min (90-130) L 08/01/23 12:40 Glucose 186 mg/dL (65-115) H 08/01/23 12:40 Calculated Osmolality 286 mOsm/kg (285-295) 08/01/23 12:40 Calcium 10.9 mg/dL (8.5-10.5) H 08/01/23 12:40 Total Bilirubin 0.6 mg/dL (0.15-1.2) 08/01/23 12:40 AST 47 U/L (0-32) H 08/01/23 12:40 ALT 43 U/L (0-33) H 08/01/23 12:40 Alkaline Phosphatase 175 U/L (35-105) H 08/01/23 12:40 Total Protein 7.3 g/dL (6.6-8.7) 08/01/23 12:40 Albumin 3.5 g/dL (3.5-5.2) 08/01/23 12:40 Globulin 3.8 g/dL (1.3-4.6) 08/01/23 12:40 All radiology interpretation(s) finalized by discharge Discharge Plan Discharge Patient Disposition: Home Clinical Impression: Renal cell carcinoma of left kidney, Metastasis to lung, IVC thrombosis Condition: Stable Prescriptions: New morphine concentrate 100 mg/5 mL (20 mg/mL) Solution 20 mg sublingual DIRECTED MDD N/A PRN (Reason: Pain/SOB) 14 Days Qty: 30 0RF Rx Instructions: 0.25ml-1ml q1H PRN may increase to 0.5ml-1ml Q1H PRN Dulcolax (bisacodyl) 10 mg Suppository 10 mg WI DAILY PRN (Reason: Constipation) Qty: 5 0RF Rx Instructions: 1 suppository per rectum every day PRN for constipation. atropine 1 % Drops 4 drp sublingual Q4H PRN (Reason: Secretions) Qty: 5 0RF Rx Instructions: 4 drops SL q 4 hours PRN for terminal congestion/excessive secretions. ondansetron 4 mg Tablet,Disintegrating 4 mg translingual Q4H PRN (Reason: Nausea) Qty: 5 0RF Rx Instructions: Dissolve 1 tablet under tongue every 4 hours PRN for nausea lorazepam 2 mg/mL Concentrate 2 mg sublingual Q4H PRN (Reason: Anxiety/Seizure) Qty: 30 0RF Rx Instructions: 0.25ml-1ml q4H PRN Anxiety/Seizure Start 0.25ml may increase to 0.5ml-1ml q4H No Action ezetimibe [Zetia] 10 mg tablet 10 mg PO DAILY atorvastatin [Lipitor] 10 mg tablet 10 mg PO DAILY levothyroxine 50 mcg capsule 50 mcg PO DAILY omeprazole 40 mg capsule,delayed release(DR/EC) 40 mg PO DAILY baclofen 10 mg tablet 10 mg PO DAILY PRN (Reason: Muscle Spasm) latanoprost 0.005 % drops 1 drp ophthalmic (eye) DAILY ramipril 2.5 mg capsule 2.5 mg PO DAILY meloxicam 15 mg tablet 15 mg PO DAILY PRN (Reason: Pain) valacyclovir 1 gram tablet 1,000 mg PO BID PRN (Reason: fever blister) alprazolam 0.5 mg tablet 0.5 mg PO DAILY PRN (Reason: Anxiety) promethazine 25 mg tablet 25 mg PO Q6H PRN (Reason: nausea and vomiting) Qty: 60 0RF metoclopramide HCl [Reglan] 5 mg tablet 5 mg PO Q4H Qty: 180 2RF oxycodone 10 mg tablet 10 - 20 mg PO Q4H MDD 8 PRN (Reason: pain) 7 Days Qty: 60 0RF dorzolamide-timolol (PF) 2-0.5 % Drops 1 drp ophthalmic (eye) BID metoprolol succinate 200 mg Tablet Extended Release 24 Hr 200 mg PO DAILY Discharge Orders: Discharge ED (Routine); Ordered 08/01/23 Ordered By: Jf Marin Referrals: Andres Mcmahon DO [Primary Care Provider] - Patient Instructions: Opioid Safety, Pain Management Activity Restrictions/Additional Instructions: We have called in prescriptions for you for pain nausea and discomfort. Hospice has also been contacted and will contact you to get you enrolled in the program. Coding Level of Care Code ED [employer] for Renee Gaxiola
--- NOTE | 2023-08-01 12:12 | ECG_ITS ---
[facility] Test Date: 2023-08-01 Pat Name: Ana Avila Department: Room: Gender: Female [employer]ger: : 1955 Requested By: Jf Lopez Order Number: [id number] Christiano MD: Olga Caraballo M.D. 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 [email or web address]
--- NOTE | 2023-08-01 12:12 | XR_ITS ---
WS: [id number] XR chest 1V portable [id number] REASON FOR EXAM: dyspnea/cough FINDINGS: Previous CT scan 07/23/2023 demonstrated left hilar mass/adenopathy and multiple small pulmonary eugenie s. Currently: Left hilum is enlarged and 3 left upper lung lesions are identified. The chest is essentially unchanged compared to 07/24/2023. No intervening atelectasis or postobstructi ve pneumonitis. IMPRESSION: Stable abnormal chest as above.
--- NOTE | 2023-08-01 12:16 | CT_ITS ---
WS: [id number] CTA CHEST WITH ABDOMEN AND PELVIS TECHNIQUE: Contrast enhanced CTA of the chest, with abdomen, and pelvis with coronal and sagittal ref ormatted images and additional MIP Images. CLINICAL INFORMATION: dyspnea, tachycardia, chest pain - hx CA COMPARISON: CT 07/05/2023 DLP: 613.[address] scans at [facility] use at least one of these dose optimization techniques: automated e xposure control; mA and/or kV adjustment per patient size (includes targeted exams where dose is matc hed to clinical indication); or iterative reconstruction. FINDINGS: Multiple bilateral metastatic pulmonary nodules with masslike bulky LEFT hilar lymphadenopathy appear s progressed compared to 07/05/2023. In addition some of these appear progressed compared to 4. Largest nodule in the LEFT upper lobe measures 2.5 x 2.1 cm. Numerous smaller right-sided pulmonar y nodules. Bulky masslike mediastinal and LEFT hilar lymphadenopathy with narrowing of the LEFT main pulmonary artery. RIGHT hilar lymphadenopathy. Proximal main pulmonary arteries are patent. Narrowing of the LEFT main pulmonary artery due to bulky lymphadenopathy. This remains patent. Normal segmenta l and subsegmental pulmonary arteries. No evidence pulmonary embolus. Normal caliber thoracic aorta. Normal descending thoracic aorta. Suspected new metastatic lesion with in the upper thoracic spine at T5 with mild biconcave compression and diffuse lytic metastasis. Small amount of surrounding soft tissue thickening. Mild associated epidural disease. Additional diffuse l ytic lesions involving the C7 and T1 vertebral bodies also appears new with anterior wedging and path ologic compression fractures. Compression fracture involving the inferior endplate of T1 with anterio r wedging and loss of approximately 50% vertebral body height. Associated epidural disease at this le jose. Prominent surrounding soft tissue component with edema at the visualized C7 and T1 levels with e pidural disease. At least mild to moderate central canal stenosis but difficult to visualize the cent ral canal CT ABDOMEN AND PELVIS: Grade 1 anterolisthesis L5 on S1. Prior cholecystectomy. Multiple new low-density lesions in the live r compatible with metastatic disease new since 07/05/2023. Largest lesion in the LEFT hepatic lobe me asures 3.1 cm. In addition there is diffuse enhancing expansile tumor thrombus involving the LEFT mary ann al vein extending to the IVC and hepatic vein confluence. Tumor thrombus extends to the RIGHT atrial junction. Progressed presumed LEFT renal cell carcinoma with obliteration of the LEFT renal pelvis an d sinus. Diffuse enlargement the LEFT kidney with necrotic periaortic and perirenal lymphadenopathy. Retrocrural lymphadenopathy. LEFT renal artery is occluded. Aorta is patent. Normal RIGHT renal paren chymal enhancement. RIGHT adrenal gland is normal. Normal sigmoid colon. IMPRESSION: 1. No evidence of pulmonary embolus. 2. Multiple progressed metastatic pulmonary nodules described above. 3. Masslike bulky LEFT hilar and suprahilar lymphadenopathy with narrowing of the LEFT main pulmonar y artery which remains patent. 4. New diffuse bony metastatic disease visualized at C7, T1, and T5 with pathologic compression frac tures and paravertebral soft tissue component. Evidence of epidural disease at these levels with mild to moderate central canal stenosis worse at T1. 5. New progressed liver metastasis. 6. Extensive enhancing tumor thrombus involving the renal vein extending into the IVC and hepatic ve in confluence. This extends to the RIGHT atrial junction. 7. Presumed LEFT renal cell carcinoma with enlargement the LEFT kidney and obliteration of the LEFT renal sinus and pelvis. Bulky necrotic periaortic lymphadenopathy.
[2023-08-01] MEDS: sodium chloride 0.9% 1,000 ML 999 ML IV ×2 (13:01→14:37)
[2023-08-01 13:03] LABS: Hematocrit 32.4 % (36-47); Mean Corpuscular HGB Conc 30.6 g/dL (30-55); Mean Corpuscular Hemoglobin 25.5 pg (27-33); Mean Corpuscular Volume 83.5 fl (85-98); Mean Platelet Volume 11.1 fL (7.4-10.4); Platelet Count 195 10^3/cmm (157-399); Red Blood Count 3.88 10^6/uL (3.85-5.65); Red Cell Distribution Width 15.4 % (12.1-15.1); White Blood Count 17.32 10^3/uL (3.29-11.43)
[2023-08-01 13:17] LABS: Alanine Aminotransferase 43 U/L (0-33); Albumin Level 3.5 g/dL (3.5-5.2); Alkaline Phosphatase 175 U/L (35-105); Anion Gap 26.2 (5-19); Aspartate Amino Transferase 47 U/L (0-32); Blood Urea Nitrogen 56 mg/dL (8-23); Calcium 10.9 mg/dL (8.5-10.5); Carbon Dioxide 21 mmol/L (22-29); Chloride 87 mmol/L (98-107); Globulin 3.8 g/dL (1.3-4.6); Glomerular Filtration Rate 37.7 mL/min (90-130); Glucose 186 mg/dL (65-115); Osmolality Calculated 286 mOsm/kg (285-295); Potassium 6.2 mmol/L (3.5-5.1); Sodium 128 mmol/L (136-145); Total Bilirubin 0.6 mg/dL (0.15-1.2); Total Protein 7.3 g/dL (6.6-8.7)
[2023-08-01 13:30] LABS: Slide Review Slide Review Perform; Total Cells Counted 100 (0-100)
[2023-08-01 13:35] LABS: Absolute Neutrophil 14.9 10^3/cmm (1.4-6.5); Absolute Segmented Neutrophil 14.9 10/cmm (1.6-7.1); Anisocytosis Trace; Eosinophils 0 %; Giant Platelets Trace; Lymphocytes 8 %; Lymphocytes Absolute 1.7 10^3/cmm (1.2-3.4); Platelet Estimate Normal (Normal); Segmented Neutrophils 86 %
--- NOTE | 2023-08-01 13:38 | PC.PHAR ---
Addendum entered by Humaira Lowe 08/01/23 13:43: PT STATES TAKES NO ASPIRIN OR OTHER BLOOD THINNERS. Original Note: PT FINISHED ANTIBIOTICS AND STEROIDS FROM JUNE, INCLUDING: CEFDINIR 300MG, AUGMENTIN 875MG, ZITHROMAX, PREDNISONE 5 MG AND PREDNISONE 20 MG. PT FINISHED WITH NORCO 5-325 FROM 07/06/23 7DS AND ONDANSETRON 4 MG.. PT CONFIRMS TAKING BACLOFEN 10 MG ONLY ONCE DAILY NEEDED AND STILL TAKING PROMETHAZINE 25 MG AND WOULD LIKE TO HAVE MORE METOCLOPRAMINDE HCI 5 MG (OUT OF MED)
[2023-08-01] MEDS: ondansetron 2 mg/ML SDV 2 mL 4 MG IVP (13:51)
[2023-08-01] MEDS: dexamethasone 10 mg/mL INJ IM (13:51)
[2023-08-01] MEDS: ketorolac 30 mg/mL INJ IVP (13:54)
[2023-08-01] MEDS: albuterol 2.5 mg/3 mL Neb 10 MG INHALATION (14:27)
[2023-08-01] MEDS: morphine 4 mg/mL SDV 1 mL IVP (14:37)
[2023-08-01] MEDS: iohexol 350 mg/mL 500 mL Btl (per mL) IV (15:03)
[2023-08-01] MEDS: sodium bicarbonate 8.4% 1 mEq/mL 50mL Syr 100 MEQ IVP (15:12)
[2023-08-01] MEDS: calcium chloride 10% Syr 10 mL 1 GM IVP (15:26)
[2023-08-01] MEDS: sodium polystyrene sulfonate 15 gm/60 mL Btl 30 GM PO (15:43)
== END 2023-08-01 17:15 | disposition home or self-care (01) ==
PROVIDERS: Emergency Provider Family Medicine; PCP Family Medicine
DX: C64.2 Malignant neoplasm of left kidney, except renal pelvis (principal); C78.00 Secondary malignant neoplasm of unspecified lung; I82.220 Acute embolism and thrombosis of inferior vena cava; Z87.891 Personal history of nicotine dependence; E78.5 Hyperlipidemia, unspecified; I10 Essential (primary) hypertension
CPT/HCPCS: 71045; 71275; 74177; 80053; 85007; 85025; 93005; 94640; 96361; 96372; 96374; 96375; 99285; 99291; 99292; J1100; J1885; J2270; J2405; J3490; J7030; J7613; Q9967